=== PATIENT | female | born 1990 | race Caucasian/White ===

== ENCOUNTER 2017-05-18 08:11 | Observation (INO) | payer BC ==
[~2017-05-18] VITALS: Ht 154.9 cm; Wt 68.1 kg
--- NOTE | ~2017-05-18 | DS ---
PATIENT'S NAME: SHEYLA KEY [facility] AGE: 27 Y [address] ROOM: [id number] [place], [place] [address] LOCATION: [facility] ADMIT DATE: 05/18/2017 Discharge Summary DISCHARGE DATE: 05/20/2017 FAMILY PHYSICIAN: Helena Loya MD ATTENDING PHYSICIAN: Helena Loya PRIMARY DIAGNOSES FOR ADMISSION: 1. Left upper quadrant abdominal pain. 2. Nausea and vomiting. 3. Dehydration. 4. Intrauterine at 14 weeks. DISMISSAL DIAGNOSES: 1. Nausea, vomiting, and diarrhea, improving. 2. Dehydration, resolved. 3. Hypokalemia, improving. 4. Abdominal pain, left upper quadrant, resolved. 5. Leukopenia, improving. 6. Intrauterine at 14 weeks. PRESENTING COMPLAINT: A 27-year-old 2, para 1, at 14 weeks gestational age, had presented with nausea and vomiting initially in the clinic, was dehydrated, got some fluids and then developed severe left upper quadrant pain. She then went to the emergency room and was admitted with initially what looked like hyperemesis gravidarum. She was extremely dehydrated, was given IV fluids, and had an abdominal ultrasound, which showed normal intrauterine , intraabdominal structures were all normal. It was found on admission that her white count was low at 3.4 with 67% bands, but platelets were normal at 277, hemoglobin was 13.1. Her potassium was a little low at 3.4. Urine was negative for infection. She had some mildly elevated alkaline phosphatase, and her procalcitonin on admit was 0.18. She was admitted then with hydration, IV Zofran and Reglan as well as Phenergan. HOSPITAL COURSE: With hydration and antiemetics, the abdominal pain improved. She started having diarrhea stools. Appetite returned, and she was started on some clear liquids and then diet was advanced. She continued to have some leukopenia with bandemia, but that improved. Her procalcitonin bumped to 2.7 and then fell. Her liver enzymes bumped a little bit. By 05/20/2017, she was tolerating a regular diet, did not have any nausea or vomiting, continued with a little bit of diarrhea, abdominal pain was gone. Dopplers on infant were normal. DISMISSAL INSTRUCTIONS: The patient will be dismissed to home. Continue with Zofran 4 mg every 8 hours routinely and then every 4 hours as needed for PATIENT'S NAME: SHEYLA KEY [facility] AGE: 27 Y [address] ROOM: [address] [address] LOCATION: [facility] ADMIT DATE: 05/18/2017 Discharge Summary DISCHARGE DATE: 05/20/2017 FAMILY PHYSICIAN: Helena Loya MD ATTENDING PHYSICIAN: Helena Loya nausea and vomiting. Continue with her vitamin and Unisom at bedtime. We will have her follow up with Dr. Loya in 3 to 4 days in the clinic for reassessment and recheck of labs. MD JOHN KATZ/jessica /[id number] d: 05/20/1745 t: 05/25/17 0850, DISCHARGE SUMMARY
--- NOTE | ~2017-05-18 | HP ---
PATIENT'S NAME: SHEYLA KEY [facility] AGE: 27 Y [address] ROOM: [address] [address] LOCATION: [facility] ADMIT DATE: 05/18/2017 History & Physical DISCHARGE DATE: FAMILY PHYSICIAN: Helena Loya MD ATTENDING PHYSICIAN: Helena Loya DATE OF SERVICE: CHIEF COMPLAINT: "I can't keep anything down. I feel horrible." HISTORY OF PRESENT ILLNESS: The patient is a 27-year-old, G2, P1, at fourteen weeks with three days of nausea and vomiting. She said she had a normal bowel movement three days ago. She has been unable to keep any fluids or food down for the last 3 days. She has had some chills that started yesterday, but unsure if she is running fevers. Nobody else in the house is sick. She has had no vaginal bleeding or leakage of fluid. She was seen in our office yesterday, and given 2 L of lactated Ringer, as well as Zofran and Phenergan and felt better. However, had minimal urine output this last 24 hours, in fact, only some squirts of urine with vomiting. She has increasing abdominal cramping that started last evening in the left flank and left upper quadrant radiating down into her suprapubic region. She said it felt just like she was having contractions. The pain has persisted throughout the night, and made her nausea and vomiting worse. Today, she was going to come back to the Clinic, but felt so bad, she decided to go to the ER. Upon arrival to the ER, she was given 50 mcg of fentanyl and 8 mg of IV Zofran as well as a liter of IV fluid, and did not really feel much better. Therefore, Dr. Meyer called me for admission. She did have a pelvic ultrasound that showed a normal intrauterine at 15 weeks. PAST MEDICAL HISTORY: Significant for anxiety. CURRENT MEDICATIONS: vitamin. ALLERGIES: PENICILLIN. SOCIAL HISTORY: No alcohol use. Nonsmoker. She is and has one child at home. FAMILY HISTORY: Diabetes in grandma and breast cancer history in grandma. PATIENT'S NAME: SHEYLA KEY [facility] AGE: 27 Y [address]OM: [address] [address] LOCATION: [facility] ADMIT DATE: 05/18/2017 History & Physical DISCHARGE DATE: FAMILY PHYSICIAN: Helena Loya MD ATTENDING PHYSICIAN: Helena Loya PAST SURGICAL HISTORY: None. She had a normal recent Pap smear in April. DELIVERY HISTORY: She has had one uncomplicated , delivering a spontaneous vaginal delivery at 38 weeks. She did have some nausea and vomiting with her first, however, nothing like this. REVIEW OF SYSTEMS: HEAD: No headache. CARDIORESPIRATORY: No coughing. No shortness of breath. No sore throat. MUSCULOSKELETAL: No swelling in the extremities. Otherwise, as per HPI. All other systems were reviewed and negative. PHYSICAL EXAMINATION: VITAL SIGNS: Temperature was 98.3, pulse was 100, respirations were 16, and blood pressure was 115/57. GENERAL: Sheyla appears pale, looks like she is not feeling well. She is alert and oriented x3, however. HEENT: Mucous membranes are slightly dry. Posterior pharynx appears normal. NECK: Supple without mass or swelling. HEART: Mildly tachycardic, but no murmur. LUNGS: Clear bilaterally. ABDOMEN: Gravid and consistent with dates. She has moderate discomfort to even light touch in the left upper quadrant, some over the left flank region, and some mild CVA tenderness on the left as well. She has some mild pain over the uterus itself and the left lower quadrant. She has no pain on the right side. She does have some bowel sounds that are hypoactive but noted. Some voluntary guarding when I press on the left upper quadrant. Abdomen does not appear to be distended, and no significant organomegaly was noted. EXTREMITIES: Without clubbing, cyanosis, or edema. NEUROLOGIC: No focal deficits were noted. LABORATORY DATA: Lactate is normal at 0.9. White count is low at 3.4 with a left shift of 67% bands, platelets normal at 277, and hemoglobin is 13.1. Her potassium is a little low at 3.4, and she is a little acidotic with a CO2 content of 21, sodium is 138, BUN of 16, and creatinine of 0.7; her creatinine was 0.6 yesterday. Blood sugar of 103. Urine shows 30 of protein, specific gravity of 1.015, 25 leukocytes, negative for bacteria, rare white cells, no blood, and 150 ketones. Her LFTs are normal except for a mildly elevated alkaline phosphatase, which is consistent with her . Procalcitonin is just slightly elevated at 0.18. Lipase and amylase are normal. PATIENT'S NAME: SHEYLA KEY [facility] AGE: 27 Y [address] ROOM: [place] [address] LOCATION: [facility] ADMIT DATE: 05/18/2017 History & Physical DISCHARGE DATE: FAMILY PHYSICIAN: Helena Loya MD ATTENDING PHYSICIAN: Helena Loya DIAGNOSTIC STUDIES: She did have a pelvic ultrasound that showed a normal intrauterine at 15 weeks. No placenta previa. ASSESSMENT AND PLAN: This is a 27-year-old, G2, P1, at fourteen weeks, intrauterine with hyperemesis gravidarum, dehydration, and left-sided abdominal pain. She has some hypokalemia and leukopenia with left shift (bandemia ). At this time, I am going to continue to hydrate her. I am going to schedule antiemetics for her when I check an abdominal ultrasound, specifically looking at kidney and spleen. I am going to repeat her CBC and procalcitonin this afternoon, and then also repeat CBC, procalcitonin, and CMP in the morning. I will start some Protonix as she has had some heartburn issues as well. I am going to check a magnesium level and add that to her prior labs. We will schedule Reglan, Zofran, and Phenergan to see if we cannot stop this vicious cycle of vomiting. We will Doppler the baby's heart tones every shift. Watch closely for signs of infection, and if her complete blood count remains significantly abnormal, may want to consider Hematology consult as well. I did talk with Dr. Rodriguez regarding this patient, and she agrees with the above plan. We will observe patient closely while she is here. MD ALAN DANGELO/jessica /[id number] D: [id number] T: [id number] HISTORY & PHYSICAL
--- NOTE | ~2017-05-18 | ER ---
PATIENT'S NAME: SHEYLA KEY [facility] AGE: 27 Y [address] ROOM: [place] [id number] LOCATION: [facility] ADMIT DATE: 05/18/2017 ER/Outpatient Report DISCHARGE DATE: FAMILY PHYSICIAN: Helena Loya MD ATTENDING PHYSICIAN: Helena Loya TIME OF ARRIVAL: 08:11. TIME SEEN: 08:25. IDENTIFICATION/HISTORY OF PRESENT ILLNESS: A 27-year-old, G2, P1 female, who states she is fourteen weeks , and she presented with abdominal pain, nausea, and vomiting. She was in the Clinic yesterday with nausea and vomiting, and received 2 L of IV fluids. Her nausea and vomiting persists, and now she has left-sided lower abdominal cramping pain. Her pain is 10/10 on the pain scale. She has her head in an emesis bag throughout the history taking despite taking oral Zofran at home. She has not had an ultrasound yet this . Her last menstrual period was on March 16, but yet she states she is at 14 weeks with an EDC of November 16. March 16 would wheel her to be nine weeks . EDC of November 16 would wheel her out to be 14 weeks . She has had no fever or chills. No diarrhea. No blood in her stool. No vaginal bleeding. ALLERGIES: TO AMOXICILLIN. CURRENT MEDICATIONS: 1. Zofran. 2. Unisom. 3. vitamins. SOCIAL HISTORY: The patient is and has one 3-year-old at home. She is a teacher at [employer]. Tobacco use, denies. Alcohol use, denies. Drug use, denies. REVIEW OF SYSTEMS: All systems were reviewed and are negative other than what is noted in the HPI. PHYSICAL EXAMINATION: VITAL SIGNS: Weight is 68.1 kg, blood pressure is 121/59, pulse is 130, respirations are 20, temperature is 99.3, and saturations are 99% on room air. GENERAL: A 27-year-old female, in obvious distress. PATIENT'S NAME: SHEYLA KEY [facility] AGE: 27 Y [address] ROOM: [address] [address] LOCATION: [facility] ADMIT DATE: 05/18/2017 ER/Outpatient Report DISCHARGE DATE: FAMILY PHYSICIAN: Helena Loya MD ATTENDING PHYSICIAN: Helena Loya HEENT: Head: Normocephalic and atraumatic. Eyes: Pupils are equal and reactive to light and accommodation. Extraocular movements are intact. Nose: Mucosa is pink. No lesions or drainage. Mouth: No lesions. Pharynx is benign. NECK: Supple. No lymphadenopathy. LUNGS: Clear to auscultation. HEART: Sinus tachycardia. ABDOMEN: Bowel sounds are present. Soft, nondistended, and nontender. SKIN: Porter, warm, and dry. No lesions or rashes were noted. NEUROLOGICAL: The patient is alert and oriented x4. Cranial nerves II through XII are grossly intact. Motor strength was 5/5 throughout. Sensation was intact to light touch. EMERGENCY DEPARTMENT COURSE: One liter of normal saline bolus was administered; a second liter to run at 150 mL/hr. Hemoglobin was 13.1, hematocrit was 37.6, platelets were 277, and white count was 3.4 with 23% bands and 67% segs. Sodium of 138, potassium of 3.4, chloride of 105, CO2 of 21, BUN of 16, creatinine of 0.7, and blood sugar of 103. Liver enzymes are normal. TSH is 0.639. UA was negative. Amylase of 53 and lipase of 181. Lactate is 0.9. Blood cultures were drawn after we saw the bandemia, as well as procalcitonin, which was 0.18. The patient was given here in the Emergency Room Zofran 4 mg IV, IV fluids 1 L bolus and then 150 mL/hr, fentanyl a total of 100 mcg, and Zofran a total of 8 mg with minimal improvement of her symptoms. OB Ultrasound: Normal apparent single live intrauterine with gestational age 15 weeks and an EDC of 11/09/2017. heart tones were 169. EKG: Sinus tachycardia at 102 beats per minute. No acute ST elevation or depression. Non-specific T-wave changes. IMPRESSION AND PLAN: 1. Hyperemesis gravidarum. IV fluids and Zofran. 2. Abdominal pain of uncertain etiology. Fentanyl for pain control. 3. Dehydration. Fluid replacement in the Emergency Room. 4. Sinus tachycardia. Plan for admission per Dr. Loya. MD IMNOR MORTON/jessica /[id number] d: 05/18/17 2245 t: 05/19/17 0629, OUTPATIENT REPORT
[2017-05-18 08:51] LABS: HEMATOCRIT 37.6 % (33.0-46.0); HEMOGLOBIN 13.1 g/dL (11.0-15.0); MCH 27.2 pg (27.0-34.0); MCHC 34.8 gm/dL (32.0-36.5); PLATELET COUNT 277 K/uL (150-450); RBC 4.82 M/uL (3.50-5.00); RDW-CV 12.9 % (11.9-14.6); WBC 3.4 K/uL (4.0-11.0)
[2017-05-18 09:12] LABS: ALBUMIN 3.2 gm/dL (3.5-5.0); ALK PHOS 141 IU/L (33-138); ALT 23 IU/L (12-78); ANION GAP 15.4 (10.0-19.0); AST 15 IU/L (10-40); BLOOD UREA NITROGEN 16 mg/dL (6-24); CALCIUM 8.4 mg/dL (8.5-10.5); CHLORIDE 105 mMol/L (96-110); CO2 21 mMol/L (22-32); CREATININE 0.7 mg/dL (0.5-1.1); ESTIMATED GFR (MDRD EQUATION) > 60; POTASSIUM 3.4 mMol/L (3.7-5.1); SODIUM 138 mMol/L (135-145); TOTAL BILIRUBIN 0.7 mg/dL (0.0-1.5); TOTAL PROTEIN 7.5 g/dL (6.0-8.4)
[2017-05-18 09:36] LABS: ABSOLUTE NEUTROPHIL CT (ANC) 3.1 K/uL (1.8-7.8); BANDED NEUTROPHIL # 2.3 K/uL (0.0-0.1); BANDED NEUTROPHILS % 67 %; LYMPHOCYTE # 0.3 K/uL (0.8-4.0); LYMPHOCYTE % 8 %; SEGMENTED NEUTROPHIL # 0.8 K/uL (1.8-7.8); SEGMENTED NEUTROPHIL % 23 %
[2017-05-18 10:07] LABS: BILIRUBIN URINE NEGATIVE (NEGATIVE); BLOOD URINE NEGATIVE /UL (NEGATIVE); COLOR URINE YELLOW (YELLOW); GLUCOSE URINE NEGATIVE (NEGATIVE); KETONE URINE 150 mg/dL (NEGATIVE); LEUKOCYTES URINE 25 /UL (NEGATIVE); NITRITE URINE NEGATIVE (NEGATIVE); PH URINE 6.5 (4.0-8.0); PROTEIN URINE 30 mg/dL (NEGATIVE); SPEC GRAVITY URINE 1.015 (1.003-1.035); TURBIDITY URINE CLEAR (CLEAR); UROBILINOGEN URINE NORMAL (NORMAL)
[2017-05-18 10:25] LABS: EPITHELIAL URINE RARE #/HPF (NEGATIVE); RBC URINE NEGATIVE #/HPF (NEGATIVE); WBC URINE RARE #/HPF (NEGATIVE)
[2017-05-18 10:26] LABS: BACTERIA URINE NEGATIVE (NEGATIVE); MUCUS URINE 1+ (NEGATIVE)
[2017-05-18] MEDS ORDERED: PRENATAL 1+1)(P1 TAB PO (12:32)
[2017-05-18] MEDS ORDERED: ZOFRAN4 MG PO (12:32)
[2017-05-18] MEDS ORDERED: UNISOM 25 MG25 MG PO (12:32)
[2017-05-18 17:15] LABS: HEMATOCRIT 31.9 % (33.0-46.0); MCH 27.5 pg (27.0-34.0); MCHC 34.5 gm/dL (32.0-36.5); MCV 79.8 fl (83.0-98.0); MPV 9.1 fl (9.4-12.4); PLATELET COUNT 243 K/uL (150-450); RDW-CV 13.2 % (11.9-14.6); WBC 4.6 K/uL (4.0-11.0)
--- NOTE | 2017-05-18 17:51 | NUR ---
Last VS: T:98.3 P:100 R: 16 BP: 115/57 Pain rating: . Last pain med: Fentanyl Medicated at: 1650 Effective: Yes FHT:160'S Dilatation: Effacement %: Station: Significant event: *. PT CONT TO HAVE NAUSEA/VOMITING, DIARRHEA X1. CONT TO C/O PAIN IN LUQ. US DONE AND CALLED TO [facility]. NPO.
[2017-05-18 18:14] LABS: ABSOLUTE NEUTROPHIL CT (ANC) 4.1 K/uL (1.8-7.8); BANDED NEUTROPHIL # 2.6 K/uL (0.0-0.1); BANDED NEUTROPHILS % 56 %; LYMPHOCYTE # 0.4 K/uL (0.8-4.0); LYMPHOCYTE % 8 %; MONOCYTE # 0.3 K/uL (0.0-1.0); SEGMENTED NEUTROPHIL # 1.5 K/uL (1.8-7.8); SEGMENTED NEUTROPHIL % 32 %
[2017-05-18 23:10] LABS: ADENOVIRUS F 40/41 Not Detected (Not Detect); ASTROVIRUS Not Detected (Not Detect); C DIFFICILE TOXIN A/B Not Detected (Not Detect); CAMPYLOBACTER SPECIES Not Detected (Not Detect); CRYPTOSPORIDIUM Not Detected (Not Detect); CYCLOSPORA CAYETANENSIS Not Detected (Not Detect); E. COLI (EPEC) Not Detected (Not Detect); E. COLI (ETEC) Not Detected (Not Detect); E. COLI (STEC) Not Detected (Not Detect); ENTAMOEBA HISTOLYTICA Not Detected (Not Detect); GIARDIA LAMBLIA Not Detected (Not Detect); NOROVIRUS GI/ GII Not Detected (Not Detect); PLESIOMONAS SPECIES Not Detected (Not Detect); ROTAVIRUS A Not Detected (Not Detect); SALMONELLA SPECIES Not Detected (Not Detect); SAPOVIRUS Not Detected (Not Detect); SHIGELLA AND EIEC Not Detected (Not Detect); VIBRIO SPECIES Not Detected (Not Detect); YERSINIA ENTEROCOLITICA Not Detected (Not Detect)
[2017-05-19 04:31] LABS: HEMATOCRIT 28.8 % (33.0-46.0); HEMOGLOBIN 9.7 g/dL (11.0-15.0); MCH 27.2 pg (27.0-34.0); MCHC 33.7 gm/dL (32.0-36.5); MCV 80.9 fl (83.0-98.0); MPV 8.9 fl (9.4-12.4); RBC 3.56 M/uL (3.50-5.00); RDW-CV 13.4 % (11.9-14.6); WBC 2.8 K/uL (4.0-11.0)
[2017-05-19 04:32] LABS: PLATELET COUNT 178 K/uL (150-450)
[2017-05-19 04:48] LABS: ALBUMIN 2.2 gm/dL (3.5-5.0); ALK PHOS 116 IU/L (33-138); ALT 45 IU/L (12-78); ANION GAP 9.7 (10.0-19.0); AST 58 IU/L (10-40); BLOOD UREA NITROGEN 8 mg/dL (6-24); CALCIUM 7.1 mg/dL (8.5-10.5); CHLORIDE 111 mMol/L (96-110); CO2 23 mMol/L (22-32); CREATININE 0.5 mg/dL (0.5-1.1); ESTIMATED GFR (MDRD EQUATION) > 60; POTASSIUM 3.7 mMol/L (3.7-5.1); SODIUM 140 mMol/L (135-145); TOTAL BILIRUBIN 0.8 mg/dL (0.0-1.5); TOTAL PROTEIN 5.3 g/dL (6.0-8.4)
[2017-05-19 05:18] LABS: ABSOLUTE NEUTROPHIL CT (ANC) 2.4 K/uL (1.8-7.8); BANDED NEUTROPHIL # 1.6 K/uL (0.0-0.1); BANDED NEUTROPHILS % 57 %; LYMPHOCYTE # 0.4 K/uL (0.8-4.0); LYMPHOCYTE % 14 %; MONOCYTE # 0.1 K/uL (0.0-1.0); SEGMENTED NEUTROPHIL # 0.8 K/uL (1.8-7.8); SEGMENTED NEUTROPHIL % 27 %
--- NOTE | 2017-05-19 05:28 | NUR ---
VSS. TEMPS HAVE BEEN 98.9,99.6, AND 98.5. NO PAIN MEDICATIONS GIVEN THIS SHIFT. IV TO LEFT WRIST INFUSING WITHOUT DIFFICULTIES. SENT STOOL SAMPLE DOWN FOR STOOL PATHEGAN, RESULTS WERE NEGATIVE. NEED TO COLLECT STOOL TO SEND FOR CULTURE. HEART TONES DOPPLED, 160'S. PHENERGAN DUE NEXT AT 0630. REGLAN AND ZOFRAN GIVEN LAST AT 0524.
--- NOTE | 2017-05-19 12:53 | NUR ---
A - PT SCREENED D/T MST. 14 WEEKS . N/V/D, DEHYDRATION. PT REPORTED 4# WEIGHT LOSS. NO ORAL INTAKE X3 DAYS. N/V BETTER CONTROLLED NOW. HT: 154.94 CM, WT: 150#, BMI: 28.4, IBW: 50 KG, %IBW: 136% LABS: ALB 2.2, AST 58 MEDS: PROTONIX, REGLAN, ZOFRAN DIET: REGULAR. PER PT, TOLERATING ORAL DIET BETTER NOW, HAD SOME TOAST THIS MORNING. SHELLFISH ALLERGY. EST NEEDS: 2879-1052 KCAL (25-30 KCAL/KG IBW), 50-60 GRAMS PROTEIN (1-1.2 GRAMS/KG IBW), FLUID NEEDS: 1ML/KCAL D - INADEQUATE ORAL INTAKE RELATED TO ALTERED GI FUNCTION EVIDENCED BY N/V PRIOR TO ADMISSION AND 4# WT LOSS PER PT. I - PT AGREED TO TRY SNACK IN BETWEEN MEALS. M/E - GOAL: PT WILL BE ABLE TO TOLERATE >50% OF MEALS AND AT LEAST ONE SNACK PER DAY IN 4-6 DAYS.
--- NOTE | 2017-05-19 18:55 | NUR ---
Last VS: T:98.3 P:82 R: 16 BP: 102/56 Pain ratin. Last pain med: None given Medicated at: Effective: Yes FHT: 165 by doppler Significant event: Vitals stable and patient afebrile. Iv in left wrist infusing at 100ml/hr*. Repeat labs in am. No vomiting this shift, no abdominal pain. Patient reports feeling "much better than yesterday". Diarrhea stool x2. Regular diet given.
[2017-05-20 04:37] LABS: BASOPHIL % 0.4 %; EOSINOPHIL # 0.1 K/uL (0.0-0.5); EOSINOPHIL % 4.2 %; HEMATOCRIT 30.4 % (33.0-46.0); HEMOGLOBIN 10.2 g/dL (11.0-15.0); IMMATURE GRANULOCYTE % 0.8 %; LYMPHOCYTE # 0.7 K/uL (0.8-4.0); LYMPHOCYTE % 25.8 %; MCHC 33.6 gm/dL (32.0-36.5); MCV 80.4 fl (83.0-98.0); MONOCYTE # 0.4 K/uL (0.0-1.0); MPV 8.9 fl (9.4-12.4); NEUTROPHIL # (ANC) 1.5 K/uL (1.8-7.8); NEUTROPHIL % 54.8 %; PLATELET COUNT 188 K/uL (150-450); RBC 3.78 M/uL (3.50-5.00); RDW-CV 13.4 % (11.9-14.6); WBC 2.6 K/uL (4.0-11.0)
[2017-05-20 04:52] LABS: ALBUMIN 2.4 gm/dL (3.5-5.0); ALK PHOS 145 IU/L (33-138); ALT 106 IU/L (12-78); ANION GAP 9.9 (10.0-19.0); AST 108 IU/L (10-40); BLOOD UREA NITROGEN 5 mg/dL (6-24); CALCIUM 7.4 mg/dL (8.5-10.5); CHLORIDE 109 mMol/L (96-110); CO2 23 mMol/L (22-32); CREATININE 0.4 mg/dL (0.5-1.1); ESTIMATED GFR (MDRD EQUATION) > 60; POTASSIUM 3.9 mMol/L (3.7-5.1); SODIUM 138 mMol/L (135-145); TOTAL PROTEIN 5.8 g/dL (6.0-8.4)
[2017-05-20 04:53] LABS: TOTAL BILIRUBIN 0.5 mg/dL (0.0-1.5)
[2017-05-20] MEDS ORDERED: ZOFRAN4 MG PO ×2 (08:11→08:19)
[2017-05-20 08:42] LABS: ABSOLUTE NEUTROPHIL CT (ANC) 1.6 K/uL (1.8-7.8); BANDED NEUTROPHIL # 0.5 K/uL (0.0-0.1); BANDED NEUTROPHILS % 19 %; LYMPHOCYTE # 0.8 K/uL (0.8-4.0); LYMPHOCYTE % 29 %; MONOCYTE # 0.2 K/uL (0.0-1.0); SEGMENTED NEUTROPHIL # 1.1 K/uL (1.8-7.8); SEGMENTED NEUTROPHIL % 42 %
[2017-05-20 08:50] LABS: NRBC % 0 /100WBC (0-0.00)
== END 2017-05-20 08:42 | disposition disaster alternative care site (69) ==
LOC: GMED 08:11 → GOBS 11:07
PROVIDERS: Family Medicine; ADMIT Family Medicine
DX: O21.1 Hyperemesis gravidarum with metabolic disturbance (principal); E86.0 Dehydration; O99.89 Other specified diseases and conditions complicating pregnancy, childbirth and the puerperium; R10.12 Left upper quadrant pain; D72.819 Decreased white blood cell count, unspecified; Z88.0 Allergy status to penicillin; Z3A.14 14 weeks gestation of pregnancy; Z79.899 Other long term (current) drug therapy
CPT/HCPCS: C9113; G0378; G0463; J2405; J2550; J2765; J3010; J3480; J7030